=== PATIENT | female | born 1965 | race Two or more races ===

== ENCOUNTER 2023-12-14 15:57 | Emergency (ER) | payer OTHER ==
[~2023-12-14] VITALS: Ht 175.3 cm; Wt 163.6 kg
[2023-12-14 16:01] VITALS: BP 146/79; PULSE 72; RESP 18; TEMP 98.5; O2SAT 97
[2023-12-14] MEDS ORDERED: CHL25 PO (16:35)
[2023-12-14] MEDS ORDERED: AMLO-258 PO (16:35)
[2023-12-14] MEDS ORDERED: OMEP20 PO (16:35)
[2023-12-14] MEDS ORDERED: METH-659 PO (16:35)
[2023-12-14] MEDS ORDERED: HYDR-4072 PO (16:35)
[2023-12-14] MEDS ORDERED: LOSA-382 PO (16:35)
[2023-12-14] MEDS ORDERED: METF-1211 PO (16:35)
[2023-12-14] MEDS ORDERED: POTA-206 PO (16:35)
[2023-12-14] MEDS ORDERED: CELE100 PO (16:35)
== END 2023-12-14 17:04 | disposition left against medical advice (07) ==
LOC: EMS 15:57
DX: R06.02 Shortness of breath (principal); R05.9 Cough, unspecified; Z53.21 Procedure and treatment not carried out due to patient leaving prior to being seen by health care provider